=== PATIENT | male | born 1970 | race Caucasian/White ===

== ENCOUNTER 2024-04-02 03:57 | Emergency (ER) | payer BC, SELFPAY ==
[2024-04-02 04:04] VITALS: BP 152/77; PULSE 70; TEMP 36.5; O2SAT 97; BMI 43.4
[2024-04-02 04:22] LABS: Bilirubin Urine NEGATIVE (NEGATIVE); Blood Urine NEGATIVE (NEGATIVE); Clarity Urine CLEAR (CLEAR); Color Urine LT. YELLOW (YELLOW); Glucose Urine UA NEGATIVE (NEGATIVE); Ketones Urine NEGATIVE (NEGATIVE); Leukocyte Esterase Urine NEGATIVE (NEGATIVE); Nitrite Urine NEGATIVE (NEGATIVE); Protein Urine NEGATIVE (NEG/TRACE); Urobilinogen Urine 0.2 EU/dL (0.2-1.0); pH Urine 5.5 (5.0-9.0)
[2024-04-02 04:24] LABS: Urine Microscopic Indicated NO
[2024-04-02 04:29] LABS: Basophils Percent Auto 0.4 % (0.2-2.0); Eosinophils Absolute Auto 0.1 10^3/uL (0.0-0.7); Eosinophils Percent Auto 1.3 % (0.9-7.0); Hematocrit 41.2 % (42.0-54.0); Hemoglobin 13.9 g/dL (14.0-18.0); Immature Granulocytes Abs Auto 0.01 10^3/uL (0.00-0.03); Immature Granulocytes Pct Auto 0.1 % (0.0-0.5); Lymphocytes Absolute Auto 1.3 10^3/uL (1.2-3.8); Lymphocytes Percent Auto 16.3 % (20.5-60.0); Mean Corpuscular HGB Conc 33.7 g/dL (29.9-35.2); Mean Platelet Volume 10.5 fL (9.5-13.5); Monocytes Absolute Auto 0.8 10^3/uL (0.3-0.8); Monocytes Percent Auto 9.7 % (1.7-12.0); Neutrophils Absolute Auto 5.6 10^3/uL (1.4-6.5); Neutrophils Percent Auto 72.2 % (43.0-75.0); Platelet Count 183 10^3/uL (150-450); Red Blood Count 4.63 10^6/uL (4.70-6.10); Red Cell Distribution Width 13.3 % (11.0-15.0); White Blood Count 7.8 10^3/uL (4.0-11.0)
--- NOTE | 2024-04-02 04:30 | ED.GENADUL1 ---
HPI HPI - General Adult General Chief complaint: Urogenital-Male Stated complaint: UNABLE TO URINATE Time Seen by Provider: 04/02/24 04:19 Source: patient Mode of arrival: walk-in Limitations: no limitations History of Present Illness HPI narrative: 53-year-old male presents for the inability to urinate. This has never happened to him before and it started last evening. He has the urge to urinate but cannot. No recent dysuria or hematuria or back pain. He has never had any kidney issues. The pain has been continuous and moderate to severe. Related Data Previous Rx's ?Medication ?Instructions ?Recorded cephalexin 500 mg capsule 500 mg PO TID 7 days #21 caps 04/02/24 tamsulosin 0.4 mg capsule (Flomax) 0.4 mg PO DAILY #7 caps 04/02/24 Allergies Allergy/AdvReac Type Severity Reaction Status Date / Time No Known Drug Allergies Allergy Verified 04/02/24 04:07 Opioid HPI Opioid Management Most Recent Opioid Data: No Data to Display Review of Systems ROS Narrative A ten point review of systems is negative except as noted above. PFSH PFSH Social History Little interest or pleasure in doing things: not at all Feeling down, depressed, or hopeless: not at all Exam Narrative Exam Narrative: Nurses note and vital signs reviewed and patient is not hypoxic. General: The patient appears well and in no apparent distress. Patient is resting comfortably on cart. Cummings catheter has already been inserted. Skin: Warm, dry, no pallor noted. There is no rash noted. Head: Normocephalic, atraumatic Eye: Normal conjunctiva, no drainage Ears, Nose, Mouth, and Throat: oral mucosa is moist. Nares patent. Cardiovascular: Regular Rate and Rhythm Respiratory: Patient is in no distress, no accessory muscle use, lungs are clear to auscultation, no wheezing, rales or rhonchi Back: non-tender GI: Soft and nontender Musculoskeletal: The patient has no evidence of calf tenderness, no pitting edema, symmetrical pulses noted bilaterally Neurological: A&O, normal speech Psychiatric: Cooperative Constitutional Vital Signs, click to edit/add: Last Vital Signs Temp 97.7 F 04/02/24 04:04 Pulse 70 04/02/24 04:04 Resp 16 04/02/24 04:04 BP 152/77 H 04/02/24 04:04 Pulse Ox 97 10/13/24 04:04 O2 Del Method Room Air 04/02/24 04:04 Course Vital Signs Vital signs: Vital Signs Temperature 97.7 F 04/02/24 04:04 Pulse Rate 70 04/02/24 04:04 Respiratory Rate 16 04/02/24 04:04 Blood Pressure 152/77 H 04/02/24 04:04 Pulse Oximetry 97 04/02/24 04:04 Oxygen Delivery Method Room Air 04/02/24 04:04 Temperature 97.7 F 04/02/24 04:04 Pulse Rate 70 04/02/24 04:04 Respiratory Rate 16 04/02/24 04:04 Blood Pressure 152/77 H 04/02/24 04:04 Pulse Oximetry 97 04/02/24 04:04 Oxygen Delivery Method Room Air 04/02/24 04:04 Medical Decision Making MDM Narrative Medical decision making narrative: The patient presented with acute urinary retention and Cummings catheter has been placed he feels much better. Renal function is normal. Urinalysis negative. He is prescribed Flomax and Keflex and will follow-up with urology promptly. Treatment diagnosis and follow-up were discussed with the patient. Differential Diagnosis Differential Diagnosis: Urinary retention, BPH Lab Data Lab results reviewed: Yes I reviewed the patient's lab results Labs: Lab Results 04/02/24 04/02/24 Range/Units 04:09 04:24 WBC 7.8 (4.0-11.0) 10^3/uL RBC 4.63 L (4.70-6.10) 10^6/uL Hgb 13.9 L (14.0-18.0) g/dL Hct 41.2 L (42.0-54.0) % MCV 89.0 (80.0-94.0) fL MCH 30.0 (25.9-34.0) pg MCHC 33.7 (29.9-35.2) g/dL RDW 13.3 (11.0-15.0) % Plt Count 183 (150-450) 10^3/uL MPV 10.5 (9.5-13.5) fL Neut % (Auto) 72.2 (43.0-75.0) % Lymph % (Auto) 16.3 L (20.5-60.0) % [place] % (Auto) 9.7 (1.7-12.0) % Eos % (Auto) 1.3 (0.9-7.0) % Baso % (Auto) 0.4 (0.2-2.0) % Neut # (Auto) 5.6 (1.4-6.5) 10^3/uL Lymph # (Auto) 1.3 (1.2-3.8) 10^3/uL [place] # (Auto) 0.8 (0.3-0.8) 10^3/uL Eos # (Auto) 0.1 (0.0-0.7) 10^3/uL Baso # (Auto) 0.0 (0.0-0.1) 10^3/uL Abs Immat Gran (auto) 0.01 (0.00-0.03) 10^3/uL Imm/Tot Granulo (auto) 0.1 (0.0-0.5) % Sodium 135 L (136-145) mmol/L Potassium 3.8 (3.5-5.1) mmol/L Chloride 100 (98-107) mmol/L Carbon Dioxide 23.0 (21.0-32.0) mmol/L Anion Gap 15.8 BUN 14.0 (7.0-18.0) mg/dL Creatinine 1.18 (0.70-1.30) mg/dL Est GFR ( Amer) >60 (>=60 mL/min/1.73m^2) Est GFR (Non-Af Amer) >60 (>=60 mL/min/1.73m^2) BUN/Creatinine Ratio 11.9 Glucose 115 H (74-106) mg/dL Calcium 8.5 (8.5-10.1) mg/dL Urine Color Lt. yellow (YELLOW) Urine Clarity Clear (CLEAR) Urine pH 5.5 (5.0-9.0) Ur Specific [place] 1.010 (1.005-1.025) Urine Protein Negative (NEG/TRACE) mg/dL Urine Glucose (UA) Negative (NEGATIVE) mg/dL Urine Ketones Negative (NEGATIVE) mg/dL Urine Occult Blood Negative (NEGATIVE) Urine Nitrite Negative (NEGATIVE) Urine Bilirubin Negative (NEGATIVE) Urine Urobilinogen 0.2 (0.2-1.0) EU/dL Ur Leukocyte Esterase Negative (NEGATIVE) Discharge Plan Discharge Chief Complaint: Urogenital-Male Clinical Impression: Acute urinary retention Patient Disposition: Home, Self-Care Time of Disposition Decision: 04:53 Condition: Good Mode of Transportation: Private Vehicle Prescriptions / Home Meds: New tamsulosin [Flomax] 0.4 mg capsule 0.4 mg PO DAILY Qty: 7 0RF cephalexin 500 mg capsule 500 mg PO TID 7 Days Qty: 21 0RF Print Language: Korean Instructions: Urinary Retention in Men (ED), Cummings Catheter Placement and Care (ED) Referrals: Eduardo Pacheco MD [Primary Care Provider] - 1 week Brian Ramirez MD [Physician] - As soon as possible
[2024-04-02 04:42] LABS: Anion Gap 15.8; BUN Creatinine Ratio 11.9; Calcium 8.5 mg/dL (8.5-10.1); Chloride 100 mmol/L (98-107); Estimated GFR (African America >60 (>=60 mL/min/1.73m^2); Estimated GFR (Non-African Ame >60 (>=60 mL/min/1.73m^2); Glucose 115 mg/dL (74-106); Potassium 3.8 mmol/L (3.5-5.1); Sodium 135 mmol/L (136-145)
== END 2024-04-02 05:09 | disposition home or self-care (01) ==
PROVIDERS: Emergency Provider Emergency Medicine; PCP Family Medicine
DX: R33.9 Retention of urine, unspecified (principal)
CPT/HCPCS: 36415; 51702; 80048; 81003; 85025; 99284